=== PATIENT | female | born 1995 | race African-American/Black ===

== ENCOUNTER 2016-12-02 08:57 | Emergency (ER) | payer OTHER ==
[2016-12-02 09:03] VITALS: BP 119/67; PULSE 67; TEMP 98.6; BMI 20.6
[2016-12-02] MEDS ORDERED: KETOROLAC TROMETHAMINE 60 MG/2 ML VIAL IM ONE (09:51)
[2016-12-02] MEDS ORDERED: KETOROLAC TROMETHAMINE 60 MG/2 ML VIAL ONE (10:08)
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
== END 2016-12-02 11:23 | disposition home or self-care (01) ==
LOC: JERFT 08:57
DX: M54.5 Low back pain (principal); M54.6 Pain in thoracic spine; V43.52XA Car driver injured in collision with other type car in traffic accident, initial encounter; Y92.481 Parking lot as the place of occurrence of the external cause; Y93.89 Activity, other specified; Y99.9 Unspecified external cause status
CPT/HCPCS: 72070-TC; 72100-TC; 84703; 99281-25

== ENCOUNTER 2017-08-19 23:27 | Emergency (ER) | payer OTHER ==
[2017-08-19 23:56] VITALS: BP 106/52; PULSE 85; TEMP 99.7; BMI 20.9
--- NOTE | 2017-08-20 00:03 | PDOC ---
History of Present Illness - General History Source: Patient Exam Limitations: No Limitations - History of Present Illness Initial Comments: 08/20/17 00:57 The patient is a 22 year old female with no significant past medical history who presents to the emergency department for evaluation of emesis beginning today. As per her mother, the patient reports diffuse moderate abdominal pain occurring shortly after eating a tuna fish sandwich. The patient reports multiple episodes of NBNB emesis and diarrhea. The patient reports associated symptoms of nausea, fever and diaphoresis. LMP was in the beginning of July. The patient denies chest pain, shortness of breath, headache, and dizziness. Denies chills, constipation, dysuria, frequency, urgency, and hematuria. Allergies: NKA Social history: No reported cigarette, alcohol, or drug use. PCP: Dr. Leighton Flores [phone]) <Rashel De Leon - Last Filed: 08/20/17 00:57> <Carley Coombs - Last Filed: 08/20/17 01:23> - General Chief Complaint: Pain, Acute Stated Complaint: STOMACH PAIN Time Seen by Provider: 08/19/17 23:44 Past History <Rashel De Leon - Last Filed: 08/20/17 00:57> - Past Medical History Asthma: Yes - Suicide/Smoking/Psychosocial Hx Smoking History: Never smoked Have you smoked in the past 12 months: No Information on smoking cessation initiated: No Hx Alcohol Use: No Drug/Substance Use Hx: No Substance Use Type: None <Carley Coombs - Last Filed: 08/20/17 01:23> - Past Medical History Allergies/Adverse Reactions: Allergies Allergy/AdvReac Type Severity Reaction Status Date / Time No Known Allergies Allergy Verified 08/19/17 23:54 Home Medications: Ambulatory Orders Ibuprofen [Motrin -] 600 mg PO QID #28 tablet 12/02/16 Ondansetron [Zofran Odt -] 4 mg SL TID PRN #21 od.tablet 08/20/17 Review of Systems - Review of Systems Able to Perform ROS?: Yes Comments:: CONSTITUTIONAL: (+)Fever. (+)Diaphoresis. Absent: chills, generalized weakness, malaise, loss of appetite HEENT: Absent: rhinorrhea, nasal congestion, throat pain, throat swelling, difficulty swallowing, mouth swelling, ear pain, eye pain, visual Changes CARDIOVASCULAR: Absent: chest pain, syncope, palpitations, irregular heart rate, lightheadedness , peripheral edema RESPIRATORY: Absent: cough, shortness of breath, dyspnea with exertion, orthopnea, wheezing, stridor, hemoptysis GASTROINTESTINAL: (+)Diffuse abdominal pain. (+)Nausea. (+)Vomiting. (+) Diarrhea. Absent: abdominal distension,constipation, melena, hematochezia GENITOURINARY: Absent: dysuria, frequency, urgency, hesitancy, hematuria, flank pain, genital pain MUSCULOSKELETAL: Absent: myalgia, arthralgia, joint swelling SKIN: Absent: rash, itching, pallor HEMATOLOGIC/IMMUNOLOGIC: Absent: easy bleeding, easy bruising, lymphadenopathy, frequent infections ENDOCRINE: Absent: unexplained weight gain, unexplained weight loss, heat intolerance, cold intolerance NEUROLOGIC: Absent: headache, focal weakness or paresthesias, dizziness, unsteady gait, seizure, mental status changes, bladder or bowel incontinence PSYCHIATRIC: Absent: anxiety, depression, suicidal or homicidal ideation, hallucinations. <Rashel De Leon - Last Filed: 08/20/17 00:57> *Physical Exam - Vital Signs Last Vital Signs Temp Pulse Resp BP Pulse Ox 99.7 F H 85 20 106/52 100 08/19/17 23:54 08/19/17 23:54 08/19/17 23:54 08/19/17 23:54 08/19/17 23:54 - Physical Exam Comments: GENERAL: Well developed, well nourished. Awake and alert. No acute distress. HEENT: Normocephalic, atraumatic. PERRLA, EOMI. No conjunctival pallor. Sclera are non- icteric. Moist mucous membranes. Oropharynx is clear. NECK: Supple. Full ROM. No JVD. Carotid pulses 2+ and symmetric, without bruits. No thyromegaly. No lymphadenopathy. CARDIOVASCULAR: Regular rate and rhythm. No murmurs, rubs, or gallops. Distal pulses are 2+ and symmetric. PULMONARY: No evidence of respiratory distress. Lungs clear to auscultation bilaterally. No wheezing, rales or rhonchi. ABDOMINAL: Soft. Non-tender. Non-distended. No rebound or guarding. No organomegaly. Normoactive bowel sounds. MUSCULOSKELETAL Normal range of motion at all joints. No bony deformities or tenderness. No CVA tenderness. EXTREMITIES: No cyanosis. No clubbing. No edema. No calf tenderness. SKIN: Warm and dry. Normal capillary refill. No rashes. No jaundice. NEUROLOGICAL: Alert, awake, appropriate. Cranial nerves 2-12 intact. No deficits to light touch and temperature in face, upper extremities and lower extremities. No motor deficits in the in face, upper extremities and lower extremities. Normoreflexic in the upper and lower extremities. Normal speech. Toes are down- going bilaterally. Gait is normal without ataxia. PSYCHIATRIC: Cooperative. Good eye contact. Appropriate mood and affect. <Rashel De Leon - Last Filed: 08/20/17 00:57> - Vital Signs Last Vital Signs Temp Pulse Resp BP Pulse Ox 99.7 F H 85 20 106/52 100 08/19/17 23:54 08/19/17 23:54 08/19/17 23:54 08/19/17 23:54 08/19/17 23:54 <Carley Coombs - Last Filed: 08/20/17 01:23> ED Treatment Course - LABORATORY CBC & Chemistry Diagram: 08/20/17 00:25 08/20/17 00:25 - ADDITIONAL ORDERS Additional order review: Laboratory Results 08/20/17 08/20/17 00:25 00:25 Sodium 138 Potassium 4.2 Chloride 104 Carbon Dioxide 28 Anion Gap 6 L BUN 18 Creatinine 0.9 Creat Clearance w eGFR > 60 Random Glucose 97 Calcium 9.3 Total Bilirubin 0.6 AST 18 ALT 15 Alkaline Phosphatase 71 Total Protein 8.5 H Albumin 4.5 Lipase 234 Serum , Qual Negative 08/20/17 00:25 RBC 4.82 MCV 84.0 MCHC 33.9 RDW 13.0 MPV 8.6 Neutrophils % 89.2 H Lymphocytes % 3.8 L Monocytes % 4.2 Eosinophils % 2.3 Basophils % 0.5 - Medications Given in the ED: ED Medications Discontinued Medications Generic Name Dose Route Start Last Admin Trade Name Freq PRN Reason Stop Dose Admin Ondansetron HCl 4 mg 08/20/17 00:10 08/20/17 00:32 Zofran Injection IVPUSH 08/20/17 00:11 4 mg ONCE ONE Administration <Rashel De Leon - Last Filed: 08/20/17 00:57> - LABORATORY CBC & Chemistry Diagram: 08/20/17 00:25 08/20/17 00:25 <Carley Coombs - Last Filed: 08/20/17 01:23> *DC/Admit/Observation/Transfer - Attestations Scribe Attestion: Documentation prepared by Rashel De Leon, acting as auditor medical claims for Carley Coombs MD. <Rashel De Leon - Last Filed: 08/20/17 00:57> <Carley Coombs - Last Filed: 08/20/17 01:23> Diagnosis at time of Disposition: Vomiting and diarrhea - Discharge Dispostion Disposition: HOME Condition at time of disposition: Stable - Prescriptions Prescriptions: Ondansetron [Zofran Odt -] 4 mg SL TID PRN #21 od.tablet PRN Reason: Nausea And/Or Vomiting - Referrals Referrals: Leighton Flores MD [Primary Care Provider] - - Patient Instructions Printed Discharge Instructions: DI for Diarrhea and Traveler's Diarrhea -- Adult, DI for Vomiting -- Adult Additional Instructions: PLEASE ADJUNCT FACULTY INSTRUCTOR YOUR PRESCRIPTION MEDICATION AT YOUR [facility] ON [address] YOUR DIET TOLERATED STARTING WITH LIQUIDS THEN SOLID FOODS RETURN FOR ANY WORSENING SYMPTOMS - Post Discharge Activity Forms/Work/School Notes: Back to Work
[2017-08-20] MEDS ORDERED: SODIUM CHLORIDE 1,000 ML IV STA (00:09)
[2017-08-20] MEDS ORDERED: ONDANSETRON 4 MG/2 ML VIAL IVPUSH ONE (00:10)
[2017-08-20 00:30] LABS: BASO % 0.5 % (0-2.0); EOS % 2.3 % (0-4.5); HEMATOCRIT 40.5 % (32.4-45.2); HEMOGLOBIN 13.7 GM/dL (10.7-15.3); LYMPH % 3.8 % (8-40); MCH 28.5 pg (25.7-33.7); MCHC 33.9 g/dl (32.0-36.0); MEAN PLT VOLUME 8.6 fl (7.5-11.1); MONO % 4.2 % (3.8-10.2); NEUT % 89.2 % (42.8-82.8); PLATELET COUNT 182 K/MM3 (134-434); RBC 4.82 M/mm3 (3.60-5.2); WHITE BLOOD COUNT 10.7 K/mm3 (4.0-10.0)
[2017-08-20 00:53] LABS: ALBUMIN 4.5 g/dl (3.4-5.0); ANION GAP 6 (8-16); BILIRUBIN,TOTAL 0.6 mg/dL (0.2-1.0); BLOOD UREA NITROGEN 18 mg/dL (7-18); CALCIUM 9.3 mg/dL (8.5-10.1); CHLORIDE 104 mmol/L (98-107); CO2 28 mmol/L (21-32); CREATININE 0.9 mg/dL (0.55-1.02); GLUCOSE,RANDOM 97 mg/dL (74-106); POTASSIUM 4.2 mmol/L (3.5-5.1); SGOT/AST 18 U/L (15-37); SGPT/ALT 15 U/L (12-78); SODIUM 138 mmol/L (136-145); TOT PROT 8.5 g/dl (6.4-8.2)
[2017-08-20 00:54] LABS: ALK PHOS 71 U/L (45-117); LIPASE 234 U/L (73-393)
[2017-08-20] MEDS ORDERED: ACETAMINOPHEN INJECTION 100 ML IVPB ONE (01:04)
[2017-08-20] MEDS ORDERED: ACETAMINOPHEN 1000 MG/100 ML VIAL (NON FORMULARY) IVPB ONE (01:04)
== END 2017-08-20 01:14 | disposition home or self-care (01) ==
LOC: JER 23:27
PROC: 3E033NZ Introduction of Analgesics, Hypnotics, Sedatives into Peripheral Vein, Percutaneous Approach (ICD-10-PCS; principal; 2017-08-19)
PROC: 3E033GC Introduction of Other Therapeutic Substance into Peripheral Vein, Percutaneous Approach (ICD-10-PCS; 2017-08-19)
DX: R11.2 Nausea with vomiting, unspecified (principal); R19.7 Diarrhea, unspecified
CPT/HCPCS: 36415; 80053; 83690; 84703; 85025; 99281-25; J0131; J7030

== ENCOUNTER 2018-02-08 15:21 | Emergency (ER) | payer OTHER ==
[2018-02-08 15:30] VITALS: BP 138/73; PULSE 87; TEMP 98; BMI 20.9
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
--- NOTE | 2018-02-08 16:07 | PDOC ---
History of Present Illness - General Chief Complaint: Psychiatric Stated Complaint: ASTHMA - History of Present Illness Initial Comments: Karen Merida is a 22yo with a PMH of asthma who presents to the ED with her mother today after an epsiode of "hyperventilation" at home. Ms Merida reports that she had a "stressful event" happen today and was quite upset. She decided to go take a shower. However, she has recently been having some asthma symptoms with hot showers and she began to have difficulty breathing today while in the bathroom. She became increasingly upset and SOB. Her grandmother and brother were present at the time, and her brother was able to carry her out of the bathroom. Her grandmother brought her albuterol inhaler , but she did not have any improvement her her breathing. She has otherwise been feeling healthy, though she does report that she has not had anything to eat today. She denies any recent nasal congestion, runny nose, cough, fevers, or chills. She has no known sick contacts. She has very mild asthma and has not needed her inhaler in months; her last significant asthma attack was in 4th grade. Her mother reports that the event today lasted about 45 minutes total. EMS was called, but she did not require treatment on the way to the hospital. Past History - Past Medical History Allergies/Adverse Reactions: Allergies Allergy/AdvReac Type Severity Reaction Status Date / Time No Known Allergies Allergy Verified 02/08/18 15:30 Home Medications: Ambulatory Orders Ibuprofen [Motrin -] 600 mg PO QID #28 tablet 12/02/16 Ondansetron [Zofran Odt -] 4 mg SL TID PRN #21 od.tablet 08/20/17 Asthma: Yes COPD: No - Suicide/Smoking/Psychosocial Hx Smoking History: Never smoked Have you smoked in the past 12 months: No Hx Alcohol Use: No Drug/Substance Use Hx: No Substance Use Type: None Review of Systems - Review of Systems Comments:: General: No fevers, no chills, no weight or appetite change, no malaise HEENT: No changes in vision, no changes in hearing, no congestion, no sore throat CV: No chest pain, no palpitations, no LE edema Pulm: See HPI GI: No nausea or vomiting, no change in bowel habits, no melena : No frequency, no urgency, no dysuria Musc: No back pain, no joint swelling, no recent injury Skin: No rash, no lesions, no erythema Endo: No excessive thirst, no heat/cold intolerance Heme: No unusual bruising or bleeding, no swollen glands Neuro: No syncope, no numbness/tingling, no focal weakness Vasc: No claudication Psych: No recent change in overall mood, no SI or HI *Physical Exam - Vital Signs Last Vital Signs Temp Pulse Resp BP Pulse Ox 98 F 87 18 138/73 98 02/08/18 15:27 02/08/18 15:27 02/08/18 15:27 02/08/18 15:27 02/08/18 15:27 - Physical Exam Comments: General: Upset, no acute distress HEENT: PERRL, EOMI, MMM, voice normal Cards: RRR, no murmur appreciated Pulm: Comfortable on room air, clear to auscultation bilaterally Abd: Soft, nontender, nondistended : No CVA tenderness Ext: Atraumatic. No LE edema. ROM intact. Strength 5/5 and equal bilaterally Vasc: Extremities WWP. Skin: Normal color, no rashes or lesions Neuro: A&Ox3, CN grossly intact, normal speech, motor/sensory grossly intact and symmetric Psych: Tearful, very upset Medical Decision Making - Medical Decision Making 02/08/18 16:08 Karen Merida is a 22yo woman with a PMH of asthma who presents today following an episode of shortness of breath while upset and crying at home. - h/o mild asthma - Appears upset, tearful on exam, but otherwise benign lung and cardiac exam. Vitals including RR and sats WNL - Given that symptoms have resolved, no need for additional workup at this time - Will give meal tray - Likely to discharge home unless SOB recurs. Discussed follow up with PMD and possibly psych. Return precautions discussed. Patient and her mother understand and agree. 02/08/18 16:42 - Ms Merida declined referral to psychiatry for follow up - Able to eat approximately half of her lunch tray - Feels better. Discharge home with close follow up. Seen and discussed with Dr Hernandez. Kika Lee PGY1 *DC/Admit/Observation/Transfer Diagnosis at time of Disposition: Shortness of breath - Discharge Dispostion Disposition: HOME Condition at time of disposition: Stable Decision to Admit order: No - Referrals Referrals: Leighton Flores MD [Primary Care Provider] - - Patient Instructions Printed Discharge Instructions: Just the Blues or Clinical Depression: Making the Distinction to Get the He Additional Instructions: Discharge Instructions: - You were seen in the ED for shortness of breath that occurred due to being upset at home - Your breathing was clear on lung exam once you arrived in the ER - Please make an appointment to follow up with your primary physician within the next 2-3 days. You may wish to re-address your symptoms of shortness of breath and lightheadedness during hot showers. If these are occurring frequently , you may not be adequately treating them with your albuterol inhaler. - Please return to the ED if you have significant shortness of breath that does not improve with your inhaler, you lose consciousness, or you have thoughts of hurting yourself or others. If you have additional episodes of feeling very upset, you may want to speak with a psychologist or psychiatrist. - Post Discharge Activity
== END 2018-02-08 16:48 | disposition home or self-care (01) ==
LOC: JER 15:21
DX: R06.02 Shortness of breath (principal); J45.909 Unspecified asthma, uncomplicated
CPT/HCPCS: 99282-25